=== PATIENT | male | born 1935 | race Caucasian/White ===

== ENCOUNTER → 2016-08-22 | Day surgery (SDC) | payer OTHER ==
[~2016-08-22] VITALS: Ht 172.7 cm; Wt 88.8 kg
[~2016-08-22] MED LIST: *morphine SULFATE 8 MG/ML PERIprocedure ONLY ONE; ALEN1TAB48 PO; ALEN40TA PO; ASPI325T PO; CENTTAB PO; CEPH-459 PO; CHOL100025 CHEW; DO NOT ADM ANY ANTICOAGULANT DRUGS XX PRN; INSULIN HUMAN REGULAR 1,000 UNITS/10 ML VIAL SQ PRN; LACTATED RINGER'S 1000 ML INJ 1,000 ML IV ONE; LACTATED RINGER'S 1000 ML IV SCH; LIPI80TA PO; METO25TA3 PO; METOPROLOL TARTRATE 25 MG TAB PO PRN; MIRA25TA PO; MULTTAB67 PO; ONDANSETRON HCL 4 MG/2 ML VIAL IV PUSH ONE; ONDANSETRON HCL 4 MG/2 ML VIAL IV PUSH PRN; OXYB5TAB10 PO; PERC5TAB12 PO; PHENYLEPH/NS 1000 MCG/10 ML SYR IV ONE; PROPOFOL 200 MG/20 ML AMP IV ONE; PROT40TA PO; SODIUM CHLORID 0.9% 500 ML IV SCH; TICEINJ I-VESICULR; VITATAB56 PO; ceFAZolin 2 GM PREMIX 50 ML IV SCH; ceFAZolin 2 GM PREMIX 50 ML ONE; oxyCODONE/ACETAMINOPHEN 5 MG/325 MG TAB PO PRN
[2016-08-22 08:44] VITALS: BP 155/87; PULSE 82; RESP 20; TEMP 98; O2SAT 98
[2016-08-22 08:57] LABS: AUTOMATED NEUTROPHIL # 6.1 TH/MM3 (1.8-7.7); BASOPHIL # 0.1 TH/MM3 (0-0.2); BASOPHIL % 0.7 % (0.0-2.0); EOSINOPHIL # 0.4 TH/MM3 (0-0.4); EOSINOPHIL % 3.8 % (0.0-4.0); HEMATOCRIT 40.8 % (39.0-51.0); HEMO FLAGS DIFF FINAL; LYMPH % 21.7 % (9.0-44.0); LYMPHOCYTE # 2.2 TH/MM3 (1.0-4.8); MEAN CELL VOLUME 79.7 FL (80.0-100.0); MEAN CORPUSCULAR HEMOGLOBIN 26.4 PG (27.0-34.0); MEAN CORPUSCULAR HGB CONC 33.1 % (32.0-36.0); NEUT % 60.8 % (16.0-70.0); PLATELET COUNT 173 TH/MM3 (150-450); RED BLOOD COUNT 5.13 MIL/MM3 (4.50-5.90); RED CELL DISTRIBUTION WIDTH 15.9 % (11.6-17.2); WHITE BLOOD COUNT 10.1 TH/MM3 (4.0-11.0)
[2016-08-22 14:04] VITALS: BP 156/82; PULSE 75; RESP 20; TEMP 97.9; O2SAT 97
--- NOTE | 2016-08-25 13:21 | MP ---
cc: RIKI GREENE MD DATE OF PROCEDURE August 22, 2016 INDICATIONS FOR PROCEDURE The case of a pleasant 80-year-old gentleman with history of recurrent bladder cancer who recently presented with lower urinary tract symptoms. Cystoscopic evaluation my office demonstrated the presence of a urethral stricture. The patient presents today for cystoscopy and direct visual internal urethrotomy. PREOPERATIVE DIAGNOSIS Urethral stricture. POSTOPERATIVE DIAGNOSIS Urethral stricture as well as devitalized tissue at the bladder dome. ATTENDING SURGEON Dr. Greene ANESTHESIA General. PROCEDURES PERFORMED Cystoscopy, direct visual internal urethrotomy and transurethral resection of devitalized tissue located to the bladder dome measuring approximately 1 cm in diameter. COMPLICATIONS None. ESTIMATED BLOOD LOSS None. SPECIMENS None. OPERATIVE PROCEDURE IN DETAIL The patient was brought to the operating suite and placed supine on the cystoscopy table. He was then placed under general anesthesia. He was then repositioned in the dorsal lithotomy position and prepped and draped in normal sterile fashion. After an appropriate time-out was undertaken, I proceeded with cystoscopic evaluation utilizing the rigid cystoscope with the 20-[place] sheath and 30-degree lens. The patient once again was noted to have a circumferential stricture involving the bulbar urethra. The stricture was tight enough that it precluded passage of the cystoscope. I next exchanged the cystoscope for the direct visual internal urethrotome with the straight blade and I was able to easily open up the stricture by cutting at the 12 o'clock position. I then once again exchanged the internal urethrotome for the cystoscope and repeated cystoscopy. The prostate was not obstructing. Further passage of the cystoscope within the bladder demonstrated a small area of devitalized tissue involving the bladder dome. The tissue itself was at the previous transurethral resection site and it was approximately 1 cm in diameter and appeared to be hanging by a few fine threads. I then went ahead and utilized the resectoscope with a 24-[place] loop and resected this small amount of devitalized tissue which was discarded. The resectoscope was then withdrawn and an 18-[place], 10 cc Benson catheter was placed and connected to gravity drainage. The patient tolerated the procedures without complications and was transferred to the PACU in satisfactory condition. Riki Greene MD BPS/LEILANI /12:19 PM /1:17 PM
== END | disposition home or self-care (01) ==
LOC: HSDC 07:56
PROVIDERS: ATTEND Urology
DX: N35.9 Urethral stricture, unspecified (principal); Z85.51 Personal history of malignant neoplasm of bladder
CPT/HCPCS: 00910; 52276; 85025; J0690; J2270; J2370; J2405; J3010; J7120

== ENCOUNTER → 2017-01-16 | Day surgery (SDC) | payer OTHER ==
[~2017-01-16] VITALS: Ht 172.7 cm; Wt 90.0 kg
[~2017-01-16] MED LIST changes: -*morphine SULFATE 8 MG/ML PERIprocedure ONLY ONE; +ACETAMINOPHEN 1000 MG/100 ML VIAL IV ONE; -ALEN1TAB48 PO; -CENTTAB PO; +CHLORHEXIDINE GLUCONATE 2 % 1 PACK (2 CLOTHS) TOPICAL PRN; +DO NOT ADM ANY ANTICOAGULANT DRUGS PRN; -DO NOT ADM ANY ANTICOAGULANT DRUGS XX PRN; +HYDROmorphone HCL PF 2 MG/ML VIAL ONE; -LACTATED RINGER'S 1000 ML INJ 1,000 ML IV ONE; +LACTATED RINGER'S 1000 ML IV PRN; -LACTATED RINGER'S 1000 ML IV SCH; -MIRA25TA PO; -ONDANSETRON HCL 4 MG/2 ML VIAL IV PUSH PRN; -OXYB5TAB10 PO; -PHENYLEPH/NS 1000 MCG/10 ML SYR IV ONE; +POVIDONE IODINE 5% (ANTISEPSIS KIT) 4 APPLICATIONS EACH NARE PRN; +SODIUM CHLORID 0.9% 500 ML IV PRN; -SODIUM CHLORID 0.9% 500 ML IV SCH; -TICEINJ I-VESICULR; -VITATAB56 PO; -ceFAZolin 2 GM PREMIX 50 ML ONE; +ePHEDrine/NS 25 MG/5 ML SYR IV ONE; -oxyCODONE/ACETAMINOPHEN 5 MG/325 MG TAB PO PRN
[2017-01-16 07:17] VITALS: BP 150/79; PULSE 68; RESP 18; TEMP 97.8; O2SAT 97
[2017-01-16 07:23] LABS: AUTOMATED NEUTROPHIL # 4.8 TH/MM3 (1.8-7.7); BASOPHIL # 0.1 TH/MM3 (0-0.2); BASOPHIL % 0.9 % (0.0-2.0); EOSINOPHIL # 0.3 TH/MM3 (0-0.4); HEMATOCRIT 38.9 % (39.0-51.0); HEMO FLAGS DIFF FINAL; LYMPH % 19.3 % (9.0-44.0); LYMPHOCYTE # 1.5 TH/MM3 (1.0-4.8); MEAN CELL VOLUME 79.2 FL (80.0-100.0); MEAN CORPUSCULAR HEMOGLOBIN 26.6 PG (27.0-34.0); MEAN CORPUSCULAR HGB CONC 33.6 % (32.0-36.0); MONO % 13.2 % (0.0-8.0); NEUT % 62.6 % (16.0-70.0); PLATELET COUNT 152 TH/MM3 (150-450); RED BLOOD COUNT 4.91 MIL/MM3 (4.50-5.90); RED CELL DISTRIBUTION WIDTH 15.5 % (11.6-17.2); WHITE BLOOD COUNT 7.7 TH/MM3 (4.0-11.0)
--- NOTE | 2017-01-16 09:15 | PD.OP ---
Operative Report Date of Surgery: Jan 16, 2017 Preoperative Diagnosis: (1) History of bladder cancer Postoperative Diagnosis: (1) History of bladder cancer Procedure: Cystoscopy with bladder biopsy and fulguration Anesthesia: General Surgeon: Riki Greene Gas Or Water Meter Installer(s): None Operation and Findings: Indication for procedure: Case of a pleasant 81-year-old gentleman with history recurrent bladder cancer as well as carcinoma in situ of the bladder underwent recent follow up cystoscopy that demonstrated a small area involving the posterior wall with devitalized tissue. Presents now for cystoscopy with bladder biopsy and fulguration of this area. Operative procedure in detail: Patient was brought to the operating room suite and placed supine on the OR table. He was then placed and general anesthesia. He was then repositioned in the dorsolithotomy position and prepped and draped in normal sterile fashion. After appropriate timeout was undertaken I proceeded with cystoscopic evaluation utilizing the rigid cystoscope with the 20 [place] sheath and 30 lens. The urethra was patent without stricture formation, the prostatic urethra demonstrated some enlargement of the lateral lobes, further passive cystoscope within the urinary bladder revealed both right and left ureteral orifices to be in correct anatomic position effluxing clear yellow urine. Once again noted was a small area measuring approximately 1 cm of devitalized tissue involving the posterior bladder wall near the dome. I next proceeded utilizing flexible biopsy forceps and took a biopsy of the site. Next the area was fulgurated with the Bugbee electrode. The bladder was drained of all irrigant fluid and a 16 [place]istan[place] 10 cc Benson catheter was placed. The patient tolerated the procedures without complications and was transferred to the PACU in satisfactory condition. Riki Greene MD Jan 16, 2017 09:15
[2017-01-16 10:47] VITALS: BP 151/82; PULSE 67; RESP 18; TEMP 97.5; O2SAT 95
--- NOTE | 2017-01-17 07:42 | EKG ---
Date Performed: 01/16/2017 Time Performed: 07:03:23 PTAGE: 81 years EKG: ELECTRONIC ATRIAL PACEMAKER MARKED LEFT AXIS DEVIATION LEFT BUNDLE BRANCH BLOCK ABNORMAL EC G PREVIOUS TRACING : 01/11/2016 09.57 DOCTOR: Pebbles Bailon Interpretating Date/Time 01/17/2017 07:41:24
== END | disposition home or self-care (01) ==
LOC: HSDC 06:09
PROVIDERS: ATTEND Urology
DX: Z85.51 Personal history of malignant neoplasm of bladder (principal); I44.7 Left bundle-branch block, unspecified; R94.31 Abnormal electrocardiogram [ECG] [EKG]
CPT/HCPCS: 00910; 52224; 85025; 88305; 93005; J0131; J0690; J1170; J2405; J7120

== ENCOUNTER 2017-02-05 13:06 | Inpatient (IN) | payer OTHER, MEDICARE ==
[~2017-02-05] VITALS: Ht 172.7 cm; Wt 90.0 kg
[~2017-02-05 13:06] MED LIST changes: -ACETAMINOPHEN 1000 MG/100 ML VIAL IV ONE; -CEPH-459 PO; -CHLORHEXIDINE GLUCONATE 2 % 1 PACK (2 CLOTHS) TOPICAL PRN; +CIPR-9 PO; -DO NOT ADM ANY ANTICOAGULANT DRUGS PRN; -HYDROmorphone HCL PF 2 MG/ML VIAL ONE; -INSULIN HUMAN REGULAR 1,000 UNITS/10 ML VIAL SQ PRN; -LACTATED RINGER'S 1000 ML IV PRN; -METOPROLOL TARTRATE 25 MG TAB PO PRN; +MIRA25TA PO; -ONDANSETRON HCL 4 MG/2 ML VIAL IV PUSH ONE; -PERC5TAB12 PO; +PHEN0.4T PO; -POVIDONE IODINE 5% (ANTISEPSIS KIT) 4 APPLICATIONS EACH NARE PRN; -PROPOFOL 200 MG/20 ML AMP IV ONE; -SODIUM CHLORID 0.9% 500 ML IV PRN; -ceFAZolin 2 GM PREMIX 50 ML IV SCH; -ePHEDrine/NS 25 MG/5 ML SYR IV ONE
[2017-02-05 13:07] VITALS: BP 142/66; PULSE 84; RESP 20; TEMP 97.1; O2SAT 98
--- NOTE | 2017-02-05 13:34 | PD ---
HPI Chief Complaint: Complaint Time Seen by Provider: 13:29 Travel History International Travel<30 days: No Contact w/Intl Traveler<30days: No Traveled to known affect area: No History of Present Illness HPI 81-year-old male presents to the emergency department for evaluation of left testicle pain and swelling that started upon awakening this morning. The patient has a history of bladder cancer, sees Dr. Greene. He is status post transurethral resection of a recurrent lesion on January 16, 2017. The patient saw Dr. Greene 2 days ago and was prescribed Mirabegron , Pyridium, ciprofloxacin. He has taken one dose of the Mirabegron, but has not yet started the ciprofloxacin. Patient also reports history of hypertension, hyperlipidemia, heart valve disease. Patient denies any fevers or chills. No chest pain or shortness of breath. He denies any abdominal pain. No nausea, vomiting, diarrhea. Patient states the pain in his testicles okay as long as he is not walking. Patient did have his lara removed [address] Greene. He denies any symptoms of retention. PFSH Past Medical History Arthritis: Yes Asthma: No Blood Disorders: No Heart Rhythm Problems: No Cancer: Yes (BLADDER ) Cardiovascular Problems: Yes (TRIPLE BYPASS; PACE MAKER PLACE ) High Cholesterol: Yes (CHOLESTEROL) Chemotherapy: Yes Chest Pain: Yes Congestive Heart Failure: Yes COPD: No Diabetes: No Endocrine: No Gastrointestinal Disorders: No Genitourinary: No (CANCER OF THE BLADDER) Hepatitis: No Hiatal Hernia: No Hypertension: Yes Immune Disorder: No Kidney Stones: No Musculoskeletal: No Neurologic: No Psychiatric: No Reproductive: No Respiratory: Yes (PT STS FLUID AROUND RT LUNG WITH QUESTIONABLE CANCER; [facility]) Radiation Therapy: Yes Renal Failure: No Sleep Apnea: No Thyroid Disease: No Past Surgical History Abdominal Surgery: No Body Medical Devices: PHILL & PINS IN RIGHT ARM, LT SHOULDER PIN, PACEMAKER Cardiac Surgery: Yes (TRIPLE BYPASS) Ear Surgery: No Endocrine Surgery: No Eye Surgery: No Genitourinary Surgery: Yes (BLADDER SURGERY X 5) Joint Replacement: No Oral Surgery: No Pacemaker: Yes (MEDTRONIC) Thoracic Surgery: Yes (pacemaker-Medtronic) Other Surgery: Yes Social History Alcohol Use: No Tobacco Use: No Substance Use: No Allergies-Medications (Allergen,Severity, Reaction): Coded Allergies: No Known Allergies (Unverified , 02/03/17) Reported Meds & Prescriptions Reported Meds & Active Scripts Active Myrbetriq (Mirabegron) 25 Mg Tab 25 Mg PO DAILY Pyridium (Phenazopyridine HCl) 100 Mg Tab 100 Mg PO Q8H PRN Cipro (Ciprofloxacin HCl) 500 Mg Tab 500 Mg PO BID Reported B-12 Tr (Cyanocobalamin) 1,000 Mcg Tab 1,000 Mcg PO DAILY Alendronate (Alendronate Sodium) 70 Mg Tab 70 Mg PO Q7D Multiple Vitamin 1 Tab 1 Tab PO DAILY Vitamin D3 (Cholecalciferol) 1,000 Unit Chew 1,000 Units CHEW DAILY Metoprolol Tartrate 25 Mg Tab 25 Mg PO BID Protonix (Pantoprazole Sodium) 40 Mg Tab 40 Mg PO BID Lipitor (Atorvastatin Calcium) 80 Mg Tab 80 Mg PO HS Aspirin 325 Mg Tab 325 Mg PO DAILY Review of Systems Except as stated in HPI: all other systems reviewed are Neg Physical Exam Narrative GENERAL: Well-nourished, well-developed elderly male patient, afebrile. SKIN: Focused skin assessment warm/dry. HEAD: Normocephalic. Atraumatic. EYES: No scleral icterus. No injection or drainage. NECK: Supple, trachea midline. No JVD or lymphadenopathy. CARDIOVASCULAR: Regular rate and rhythm without murmurs, gallops, or rubs. RESPIRATORY: Breath sounds equal bilaterally. No accessory muscle use. Lungs sounds are clear to auscultation. GASTROINTESTINAL: Abdomen soft, non-tender, nondistended. MUSCULOSKELETAL: No cyanosis, or edema. BACK: Nontender without obvious deformity. No CVA tenderness. GENITOURINARY: Circumcised. Patient has pain with palpation of the left testicle with swelling noted. No tenderness over the right testicle. No lesions or erythema. No urethral discharge. exam was done with RN at bedside. Data Data Last Documented VS Vital Signs Date Time Temp Pulse Resp B/P Pulse Ox O2 Delivery O2 Flow Rate FiO2 02/05/17 13:07 97.1 84 20 142/66 98 Room Air Orders Complete Blood Count With Diff (02/05/17 13:28) Basic Metabolic Panel (Bmp) (02/05/17 13:28) Iv Access Insert/Monitor (02/05/17 13:28) Urinalysis - C+S If Indicated (02/05/17 13:28) Us Testicles W Doppler (02/05/17 ) Blood Culture (02/05/17 15:32) Lactic Acid Sepsis Protocol (02/05/17 15:32) Sodium Chlor 0.9% 1000 Ml Inj (Ns 1000 M (02/05/17 15:45) Urine Culture (02/05/17 14:44) Levofloxacin 750 Mg Premix Inj (Levaquin (02/05/17 16:00) Admit Order (Ed Use Only) (02/05/17 16:11) Admit To Inpatient (02/05/17 ) Inpatient Certification (02/05/17 ) Activity Oob Ad Christine (02/05/17 16:11) Vital Signs (Adult) PINEDA.Q4H (02/05/17 16:11) Sodium Chlor 0.9% 1000 Ml Inj (Ns 1000 M (02/05/17 17:00) Labs Laboratory Tests Test 02/05/17 02/05/17 02/05/17 14:35 14:44 15:53 White Blood Count 22.0 TH/MM3 Red Blood Count 4.86 MIL/MM3 Hemoglobin 13.0 GM/DL Hematocrit 38.5 % Mean Corpuscular Volume 79.3 FL Mean Corpuscular Hemoglobin 26.7 PG Mean Corpuscular Hemoglobin 33.7 % Concent Red Cell Distribution Width 15.6 % Platelet Count 173 TH/MM3 Mean Platelet Volume 8.8 FL Neutrophils (%) (Auto) 85.9 % Lymphocytes (%) (Auto) 5.1 % Monocytes (%) (Auto) 7.8 % Eosinophils (%) (Auto) 0.8 % Basophils (%) (Auto) 0.4 % Neutrophils # (Auto) 18.9 TH/MM3 Lymphocytes # (Auto) 1.1 TH/MM3 Monocytes # (Auto) 1.7 TH/MM3 Eosinophils # (Auto) 0.2 TH/MM3 Basophils # (Auto) 0.1 TH/MM3 CBC Comment DIFF FINAL Differential Comment Sodium Level 140 MEQ/L Potassium Level 3.5 MEQ/L Chloride Level 103 MEQ/L Carbon Dioxide Level 27.1 MEQ/L Anion Gap 10 MEQ/L Blood Urea Nitrogen 25 MG/DL Creatinine 1.41 MG/DL Estimat Glomerular Filtration 48 ML/MIN Rate Random Glucose 123 MG/DL Calcium Level 8.9 MG/DL Urine Color YELLOW Urine Turbidity HAZY Urine pH 5.5 Urine Specific [place] 1.030 Urine Protein 30 mg/dL Urine Glucose (UA) NEG mg/dL Urine Ketones NEG mg/dL Urine Occult Blood MOD Urine Nitrite NEG Urine Bilirubin NEG Urine Urobilinogen 2.0 MG/DL Urine Leukocyte Esterase LARGE Urine RBC 5 /hpf Urine WBC /hpf Urine Squamous Epithelial 1 /hpf Cells Urine Transitional Epithelial 1 /hpf Cells Urine Amorphous Sediment RARE Urine Bacteria OCC /hpf Urine Hyaline Casts 4 /lpf Urine Mucus FEW /lpf Microscopic Urinalysis Comment CULTURE INDICATED Lactic Acid Level 1.1 mmol/L [facility] Medical Decision Making Medical Screen Exam Complete: Yes Emergency Medical Condition: Yes Medical Record Reviewed: Yes Interpretation(s) Last Impressions Scrotum Ultrasound 02/05/17 0000 Signed Impressions: Service Date/Time: Monday, February 05, 2017 13:33 - CONCLUSION: Findings are mostly consistent with epididymoorchitis, however clinical followup is recommended with possible repeat ultrasound in 6-8 weeks after appropriate clinical therapy. Jono Purdy MD Differential Diagnosis UTI vs. epididymitis vs. testicular torsion Narrative Course 81 year old male presents to the emergency department for evaluation of left testicular pain/swelling that started this morning. Patient has history of bladder cancer. He recently had lara removed [address] Greene. CBC, BMP are ordered and pending. UA is ordered and pending. Us of the testicles are ordered and pending. CBC shows leukocytosis at 22.0 which is significantly increased since previous white count of 7.1. BMP shows BUN 25, crit 31.41. UA shows innumerable WBC. US testicles shows findings are mostly consistent with epididymoorchitis. Patient is started on Levaquin 750 mg IV for epididymitis and UTI. Due to significant elevation in white count, patient will be admitted for [address] Saini accepted admission. Dr. Angela, hospitalist, wanted urology to be called before admission completed. I spoke to Dr. Kaminski, urologist front of house manager. I relayed all findings to him. He would like the patient to be sent home on oral antibiotics, ciprofloxacin. He states the patient should take Motrin [id number] for pain and follow-up with Dr. Greene this week. I discussed this with the patient and his verbalized understanding. The patient currently has a 5 day prescription for Cipro 500 mg twice a day. I will give him another prescription for another 5 days to take after current prescription is finished. The patient and his verbalized agreement and understanding. The patient was discharged in stable condition with instructions, including return instructions and follow up instructions. Diagnosis Primary Impression: Epididymo-orchitis, acute Additional Impression: Urinary tract infection Qualified Code: T83.511A - Urinary tract infection associated with indwelling urethral catheter, initial encounter Referrals: Riki Greene MD 2 days Patient Instructions: Catheter-associated Urinary Tract Infection (ED), Epididymo-Orchitis (ED), General Instructions Additional Instructions: Take your current prescription for ciprofloxacin. Once this prescription is finished, then start the prescription that you are being given today. This will make for a total of 14 days of ciprofloxacin 500 mg twice daily. Finish all antibiotics. Follow up with Dr. Greene this week. Over the counter Tylenol or Ibuprofen for pain. Return to the emergency department for any acute, worsening of symptoms. Med/Other Pt SpecificInfo: Prescription(s) given Scripts Ciprofloxacin (Cipro)500 Mg [id number] Mg PO BID 9 Days Ref 0 Prov:Dafne Lundberg 02/05/17 Ciprofloxacin 500 Mg [id number] Mg PO BID 5 Days Ref 0 Prov:Dafne Lundberg 02/05/17 Disposition: 01 DISCHARGE HOME Condition: Stable Dafne Lundberg Feb 05, 2017 13:34
[2017-02-05 14:57] LABS: AUTOMATED NEUTROPHIL # 18.9 TH/MM3 (1.8-7.7); BASOPHIL # 0.1 TH/MM3 (0-0.2); BASOPHIL % 0.4 % (0.0-2.0); EOSINOPHIL # 0.2 TH/MM3 (0-0.4); EOSINOPHIL % 0.8 % (0.0-4.0); HEMATOCRIT 38.5 % (39.0-51.0); HEMO FLAGS DIFF FINAL; LYMPH % 5.1 % (9.0-44.0); LYMPHOCYTE # 1.1 TH/MM3 (1.0-4.8); MEAN CELL VOLUME 79.3 FL (80.0-100.0); MEAN CORPUSCULAR HEMOGLOBIN 26.7 PG (27.0-34.0); MEAN CORPUSCULAR HGB CONC 33.7 % (32.0-36.0); MONO % 7.8 % (0.0-8.0); NEUT % 85.9 % (16.0-70.0); PLATELET COUNT 173 TH/MM3 (150-450); RED BLOOD COUNT 4.86 MIL/MM3 (4.50-5.90); RED CELL DISTRIBUTION WIDTH 15.6 % (11.6-17.2)
--- NOTE | 2017-02-05 15:12 | RADRPT ---
EXAM DATE/TIME: 02/05/2017 13:33 [facility] COMPARISON: No previous studies available for comparison. INDICATIONS : Testicular pain. MEDICAL HISTORY : Congestive heart failure. Hypercholesterolemia. Cataracts. Hearing loss. Glasses. Bialteral hearing a ids. Upper and lower dentures. Hyperlipidemia. Chest pain. Gastroesophegeal refulx disorder. Bladder cancer. SURGICAL HISTORY : Pacemaker. Triple bypass surgery. Right shoulder replacement. Left shoulder pin. ENCOUNTER: Initial ACUITY: 1 day PAIN SCORE: 9/10 LOCATION: Bilateral testicles. MEASUREMENTS: RIGHT TESTICLE: 4.2 x 2.7 x 2.2cm SIZE (L x W x H) NATURE LOCATION LEFT TESTICLE: 4.5 x 3.6 x 2.7 cm FINDINGS: RIGHT TESTICLE: Homogeneous echotexture without intra or extratesticular mass. Blood flow is symmetric and within no rmal limits. There is a tiny hydrocele. Small epididymal head cyst is present measuring 7 mm in size. LEFT TESTICLE: Homogeneous echotexture without intra or extratesticular mass. Blood flow is increased to left testi tammy and epididymis with thickening of the adjacent scrotum. There is a tiny hydrocele. Epididymis is within normal limits. CONCLUSION: Findings are mostly consistent with epididymoorchitis, however clinical followup is recommended with possible repeat ultrasound in 6-8 weeks after appropriate clinical therapy. Jono Purdy MD on February 05, 2017 at 15:08 Board Certified Radiologist. This report was verified electronically.
[2017-02-05 15:28] LABS: BICARBONATE 27.1 MEQ/L (21.0-32.0); POTASSIUM 3.5 MEQ/L (3.5-5.1)
[2017-02-05] MEDS ORDERED: SODIUM CHLOR 0.9% 1000 ML INJ 1,000 ML IV ONE (15:45)
[2017-02-05] MEDS ORDERED: ALEN1TAB48 PO (15:48)
[2017-02-05] MEDS ORDERED: [UNRECOGNIZED DRUG - CODE] PO (15:49)
[2017-02-05 15:52] LABS: BACTERIA, URINE OCC /hpf; BLOOD, URINE MOD (NEG); COMMENT (UR) CULTURE INDICATED; CULTURE IF INDICATED CULTURE INDICATED; GLUCOSE,URINE NEG (NEG); HYALINE CAST, URINE 4 /lpf (RARE); KETONE, URINE NEG (NEG); MUCUS URINE FEW /lpf (OCC); NITRITE,URINE NEG (NEG); PH, URINE 5.5 (5.0-8.5); SQUAMOUS EPITHELIAL CELL URINE 1 /hpf (0-5); TRANSITIONAL EPI CELLS, URINE 1 /hpf; URINE COLOR YELLOW (YELLW/STRAW)
[2017-02-05] MEDS ORDERED: LEVOFLOXACIN 750 MG PREMIX INJ 150 ML IV ONE (16:00)
[2017-02-05] MEDS ORDERED: SODIUM CHLOR 0.9% 1000 ML INJ 1,000 ML IV SCH (17:00)
[2017-02-05] MEDS ORDERED: CIPR500T2 PO (17:36)
[2017-02-05] MEDS ORDERED: CIPR-9 PO (17:38)
[2017-02-07] MEDS ORDERED: TAMS5CAP PO (15:31)
[2017-02-15] MEDS ORDERED: CIPR500T2 PO (13:15)
== END 2017-02-05 17:37 | disposition home or self-care (01) | DRG 728 ==
LOC: NEPC 13:06 → NEDA 16:13
PROVIDERS: ADMIT Internal Medicine; ATTEND Internal Medicine
DX: N45.3 Epididymo-orchitis (principal); Z95.1 Presence of aortocoronary bypass graft; I10 Essential (primary) hypertension; Z85.51 Personal history of malignant neoplasm of bladder; E78.5 Hyperlipidemia, unspecified; Z95.0 Presence of cardiac pacemaker; Z79.82 Long term (current) use of aspirin
CPT/HCPCS: 76870; 80048; 81001; 83605; 85025; 86403; 87040; 87077; 87086; 87186; 87205; 93975; J1956; J7030

== ENCOUNTER 2017-11-21 05:37 | Day surgery (SDC) | payer OTHER ==
[~2017-11-21] VITALS: Ht 172.7 cm; Wt 86.1 kg
[~2017-11-21 05:37] MED LIST changes: +ALEN1TAB48 PO; -ALEN40TA PO; +ASPI-183 PO; -ASPI325T PO; -CIPR-9 PO; -MIRA25TA PO; -PHEN0.4T PO; +TAMS5CAP PO
[2017-11-21] MEDS ORDERED: IOHEXOL 350 MG/ML 50 ML BTL (for EPS) OTHER ONE (05:38)
[2017-11-21] MEDS ORDERED: ceFAZolin 2 GM PREMIX 50 ML IV SCH (06:00)
[2017-11-21] MEDS ORDERED: POVIDONE IODINE 5% (ANTISEPSIS KIT) 4 APPLICATIONS EACH NARE PRN (06:00)
[2017-11-21] MEDS ORDERED: SODIUM CHLORID 0.9% 500 ML IV PRN (06:00)
[2017-11-21] MEDS ORDERED: POVIDONE IODINE 5% (ANTISEPSIS KIT) 4 APPLICATIONS EACH NARE SCH (06:00)
[2017-11-21] MEDS ORDERED: Hold AM Insulin & AM Hypoglycemic medications in diabetic patients PRN (06:00)
[2017-11-21] MEDS ORDERED: CHLORHEXIDINE GLUCONATE 2 % 1 PACK (2 CLOTHS) TOPICAL SCH (06:00)
[2017-11-21] MEDS ORDERED: LACTATED RINGER'S 1000 ML IV PRN (06:00)
[2017-11-21] MEDS ORDERED: METOPROLOL TARTRATE 25 MG TAB PO PRN (06:00)
[2017-11-21] MEDS ORDERED: MUPIROCIN 2% OINT 1 APPLIC/GM SYR NASAL SCH (06:00)
[2017-11-21] MEDS ORDERED: VANCOMYCIN 1 GM/200 ML INJ 200 ML IV SCH (06:00)
[2017-11-21] MEDS ORDERED: NS 1000 ML IV SCH (06:00)
[2017-11-21] MEDS ORDERED: CHLORHEXIDINE GLUCONATE 2 % 1 PACK (2 CLOTHS) TOPICAL PRN (06:00)
[2017-11-21] MEDS ORDERED: SACC1CAP3 PO (06:43)
[2017-11-21] MEDS ORDERED: LOSA50TA PO (06:43)
[2017-11-21 06:44] VITALS: BP 164/74; PULSE 51; RESP 18; TEMP 97.9; O2SAT 94
[2017-11-21 06:54] LABS: AUTOMATED NEUTROPHIL # 4.7 TH/MM3 (1.8-7.7); BASOPHIL % 0.2 % (0.0-2.0); EOSINOPHIL # 0.2 TH/MM3 (0-0.4); EOSINOPHIL % 3.2 % (0.0-4.0); HEMATOCRIT 38.1 % (39.0-51.0); HEMOGLOBIN 12.7 GM/DL (13.0-17.0); LYMPH % 19.7 % (9.0-44.0); LYMPHOCYTE # 1.4 TH/MM3 (1.0-4.8); MEAN CELL VOLUME 81.2 FL (80.0-100.0); MEAN CORPUSCULAR HEMOGLOBIN 27.2 PG (27.0-34.0); MEAN CORPUSCULAR HGB CONC 33.5 % (32.0-36.0); MONO % 11.7 % (0.0-8.0); MONOCYTE # 0.9 TH/MM3 (0-0.9); NEUT % 65.2 % (16.0-70.0); PLATELET COUNT 161 TH/MM3 (150-450); RED BLOOD COUNT 4.68 MIL/MM3 (4.50-5.90); RED CELL DISTRIBUTION WIDTH 15.7 % (11.6-17.2); WHITE BLOOD COUNT 7.3 TH/MM3 (4.0-11.0)
[2017-11-21 07:04] LABS: BICARBONATE 23.7 MEQ/L (21.0-32.0); CALCIUM 8.7 MG/DL (8.5-10.1); CREATININE 1.29 MG/DL (0.60-1.30)
[2017-11-21 07:14] LABS: INTERNATIONAL NORMALIZED RATIO 1.1 RATIO; PROTHROMBIN TIME - PATIENT 11.4 SEC (9.8-11.6)
[2017-11-21] MEDS ORDERED: LIDOCAINE HCL 2% 20 ML VIAL ONE (07:37)
[2017-11-21] MEDS ORDERED: VANCOMYCIN 500 MG VIAL ONE (07:37)
[2017-11-21] MEDS ORDERED: MIDAZOLAM HCL 2 MG/2 ML VIAL ONE (08:33)
[2017-11-21] MEDS ORDERED: ACETAMINOPHEN/CODEINE 300 MG/30 MG TAB PO PRN ×2 (09:00)
[2017-11-21] MEDS ORDERED: BACITRACIN OINT 0.9 GM PKT TOP PRN (09:00)
[2017-11-21] MEDS ORDERED: SODIUM CHLORIDE 0.9% FLUSH 10 ML FLUSH IV FLUSH PRN (09:00)
[2017-11-21] MEDS ORDERED: SODIUM CHLORIDE 0.9% FLUSH 10 ML FLUSH IV FLUSH SCH (09:00)
--- NOTE | 2017-11-21 09:06 | CATHPROC ---
[employer] HIS Report Study Information Study Number Admission Scheduled Start Study Start [id number] Nov 21 2017 5:37AM 11/21/2017 Nov 21 2017 7:25AM [place] Service Cardiac Pacer/ICD Admit Source Facility Department Other [facility] - Music Manager Physician and Clinical Staff Initial MD Berkowitz, Jarrett National Secretary Genevieve Wilson,DANIEL Other Anesthesia, HEAD PACKAGER Recorder Galilea Thomas,WARDSPERSON TECH2 Scrub Makayla Juarez,RT(R) Procedures Performed Procedure Location (Site) Vessel Name Lead Insertion Venogram Subclav. Vein (Lft Subclavian Vein Equipment Time Tool Carrier Description Size Mfg Part Number Used/Scraped INTRODUCER SET, 08:00 [employer] FR 5 [id number] *[id number] Used MICROPUNCTURE STIFF TP-1103 07:42 MEDLINE INDUSTRIES SUTURE, STRIP PLUS 1/2" * Used *[id number] 07:42 MEDLINE PACER ADHESIVE, MASTISOL 2/3CC 2/3CC 0523-48 Used 07:42 MEDLINE PACER WOMACK, LIMB * 2530 *[id number] Used [id number] 07:42 MEDLINE PACER PACK, PACER CUSTOM * Used *[id number] 07:42 MEDLINE PACER PEN, SKIN DUAL W/ RULER * Used *[id number] 08:01 [employer] PACER SAFE SHEATH, FR7, 13CM FR 7 [id number] Used 07:39 Needle Sponge Count 2 22 Used 07:39 Needle Sponge Count 3 3 Used 07:39 Needle Sponge Count 30 1 Used 08:35 Needle Sponge Count 5 5 Used 08:00 NYCOMED OMNIPAQUE, 350 MG, 50ML 50ML [id number] Used [id number] SUTURE, 2-0 VICRYL [SH] ([id number]) SUTURE, 3-0 VICRYL [SH] ([id number]) SUTURE, 4-0 MONOCRYL [PS2] (Y496G) [id number] 07:42 [employer],WARM AIR CCL * Used *[id number] [facility] PAD, ELECTROSURGICAL 07:42 * [id number] *[id number] Used SURGICAL GROUNDING ORANGE LEAD, CAPSURE FIX NOVUS, 4076-45CM 08:02 VITATRON MEDTRONIC 45CM Used 45CM *[id number] 07:42 [employer] LIZANDRO. / * Used *05925 Equipment Model, Serial, Lot Number and Expiration Data Description Model Number Serial Number Lot Number Expiration Date RUDY LEYVA, 45CM 4076-45cm [id number] 05-31-2019 History: Current Medications Medication Dosage/Unit Route Frequency Last Date/Time Taken ASA LOPRESSOR LIPITOR History: Allergies Allergy Reaction No Known Allergies History: Risk Factors Family History of Hypertension Dyslipidemia Previous [place] Previous Heart Failure Premature CAD Yes Yes Yes Yes Yes Prior Valve Prior PCI Prior CABG Surgery Yes No Yes Cerebrovascular Peripheral Artery Chronic Lung On Dialysis Diabetes Disease Disease Disease No No No No No Labs Hgb (g/dl) Hct (%) WBC (l/cumm) 11.60-17.00 35.00-51.00 4.00-11.00 12.7 38.1 7.3 Glucose (mg/dl) BUN (mg/dl) Creatinine (mg/dl) BUN:Creatinine (1:x) 74.00-106.00 7.00-18.00 0.50-1.30 10.00-20.00 101 26 1.3 20 Na (meq/l) K (meq/l) 136.00-145.00 3.50-5.10 140 4 INR (PTT:PT) 0.90-1.10 1.1 Medication Medication Total Dose (Bolus/Oral) Medication Total Dosage/Unit 2% XYLOCAINE 50 mL Medications (Bolus/Oral) Medication Time Given Dosage/Unit Administered By Reason 2% XYLOCAINE 11/21/2017 7:47:41 AM 50 mL Jarrett Berkowitz 50 mL 2% XYLOCAINE given in lab by Jarrett Berkowitz via Subcutaneous to the left upper chest. Medication (Drip) Medication Time Given Dosage/Unit Concentration/Unit Diluent (ml) Solution ANCEF 11/21/2017 7:14:43 AM 2 g 2 g ANCEF given in lab by Anesthesia, HEAD PACKAGER via Peripheral IV. Ordered by Jarrett Berkowitz. Reason: As pe r physicians verbal order. VANCOMYCIN DRIP 11/21/2017 7:14:20 AM 1 g 1 g VANCOMYCIN DRIP given in lab by Anesthesia, HEAD PACKAGER via Peripheral IV. Ordered by Jarrett Berkowitz. [place] son: As per physicians verbal order. Initial Case Assessment Cardiovascular HR Rhythm NIBP Chest Pain 59 paced 134/62 0 Edema Present Skin color Skin None Normal Warm Dry Circulatory - Right Pulses Dorsalis Pedis 1 Scale (0,1,2,3,4,d) Circulatory - Left Pulses Dorsalis Pedis 1 Scale (0,1,2,3,4,d) Circulatory - Lower Extremities Color Lower Right Color Lower Left Normal Normal Neurological State Oriented to time-place- Alert Moves all extremities person Respiration - General Respiration Rate SpO2 (%) (B/min) 18 95 Final Case Assessment Cardiovascular HR Rhythm NIBP Chest Pain 74 sr/paced 137/65 0 Neurological State Drowsy Respiration - General SpO2 (%) 97 Chronological Log Time Study Chronological Log 7:10:31 Patient arrived via Bed. 7:10:32 Patient Name, D.O.B, / Armband Verified By R.N. 7:10:33 Consent signed by the physician and the patient and verified by the Music Manager staff. 7:10:34 Pre-op and post- op instructions given; patient acknowledges understanding of instructions. 7:10:35 Patient has been NPO for Less than 6Hrs. 7:10:36 Verbal Stimulation=2 Physical Stimulation=2 Airway=2 Respiration=2 TOTAL=8. (0=absent, 1=peng ited, 2=present) 7:10:36 Anesthesia at bedside. Assumes care of patient. 7:11:28 Skin Breakdown- none per pt 7:11:34 Patient Warmer Placed on the Table. 7:11:46 Junito Prominences Protected 7:11:53 Bovie ground pad applied to: right thigh 7:12:38 Disposable Defibrillator Pads Placed On Patient. 7:12:40 2% CHLORHEXIDINE GLUCONATE WASH AND NASAL SWIPE DONE PRIOR TO PROCEDURE. 7:12:43 History and physical on the chart or being dictated. 7:13:16 A # 20 IV was noted in the Antecubital (left). Grade = 0 0.9% NaCl @ KVO 7:13:52 A # 20 IV was noted in the Forearm (right). Grade = 0 0.9% NaCl @ KVO 1 g VANCOMYCIN DRIP given in lab by Anesthesia, HEAD PACKAGER via Peripheral IV. Ordered by Jarrett Berkowitz . Reason: As per 7:14:20 physicians verbal order. 2 g ANCEF given in lab by Anesthesia, HEAD PACKAGER via Peripheral IV. Ordered by Jarrett Berkowitz. Reason: As per physicians 7:14:43 verbal order. Assessment: Initial Case, HR=59 BPM, Rhythm=paced, PULL=279/62 mmhg, Chest Pain=0, Edema=None, Color=Normal, Skin = Warm, Dry Right Pulses: Mike Ped=1 Left Pulses: Mike Ped=1 7:16:17 Lower Right Extremities: Color=Normal Lower Left Extremities: Color=Normal Neurological: State=Alert, Ox3, FITZPATRICK Respiration: Resp=18 B/min, SpO2=95 % 7:18:28 Table restraints applied according to hospital policy 7:30:48 Left Upper Chest Prepped Times Two. First Sponge And Instrument Count Done by Makayla Juarez, RT(R). 7:37:33 Hypo's: 3, Sponges: 30, Bovie/scratch: 2 Sutures: 5, Blades: 3, Instruments: 26, Syveck Patches: ~SYVECK PATCH~ verified by RW 7:40:09 A sterile drape was applied after a 3min waiting period. 7:41:11 MD arrived. 7:41:27 Reference ECG taken Time Out. Correct patient, procedure, procedure equipment, site and side verified with physician present. Time 7:45:30 concurred by MD, individual staff and HEAD PACKAGER. Time Out #2 - Consents verified, patient in correct position, all results are labled and display ed, safety precautions 7:46:00 taken, antibiotics administered. Time out concurred by MD, individual staff and HEAD PACKAGER in procedur e 7:47:00 Case Start 7:47:41 50 mL 2% XYLOCAINE given in lab by Jarrett Berkowitz via Subcutaneous to the left upper chest. 7:50:59 Surgical Incision Made. 7:51:03 A pocket was opened at the Lt. upper chest. 7:52:28 HR=75 bpm, YIAN=057/58 mmhg, SpO2=98 % 7:53:07 The existing device was explanted and the existing RA lead was disconnected. 7:57:16 The Subclav. Vein (Lft was manually injected with 20 cc's of contrast. OMNIPAQUE, 350 MG, 50 ML 50ML used. 7:59:39 Vascular access was obtained in the Subclav. Vein (Lft. A INTRODUCER SET, MICROPUNCTURE STIFF FR 5 was advanced into the Subclav. Vein (Lft using the Pe rcutaneous 7:59:48 technique. A SAFE SHEATH, FR7, 13CM FR 7 was exchanged in the Subclav. Vein (Lft. This was necessary in ord er to accomodate 8:00:24 a larger catheter. 8:00:43 Two hypo's added to the count. 8:01:26 A LEAD, CAPSURE FIX NOVUS, 45CM 45CM was inserted and positioned in the RA. 8:03:33 Lead placement verified under fluoroscopy 8:03:39 The Atrial lead impedance and threshold is being tested. 8:06:13 The existing RV lead was disconnected. 8:09:28 Repositioning the atrial lead. 8:11:17 The Atrial lead impedance and threshold is being retested. 8:17:43 The Atrial lead was sutured to the fascia. 8:21:55 The existing RA lead was capped. 8:27:19 The new RA lead and the existing RV lead were connected to the existing device. 8:29:54 Pocket flushed with antibiotic solution 8:30:34 Closing the pocket. 8:32:01 HR=69 bpm, UVOK=108/60 mmhg, SpO2=99 % Second Sponge And Instrument Count Done by Makayla Juarez, RT(R). 8:33:33 Hypo's: 5, Sponges: 30, Bovie/scratch: 2 Sutures: ~SUTURE~, Blades: 3, Instruments: ~INSTRU~, Syveck Patches: 0 8:51:18 The pocket was closed. 8:51:20 Case End The Final Sponge And Instrument Count Done by Makayla Juarez, RT(R). 8:52:50 Hypo's: 5, Sponges: 30, Bovie/scratch: 2 Sutures: 5, Blades: 3, Instruments: 26, Syveck Patches: 0 8:53:27 Steri-strips and a sterile dressing applied to site. 8:54:22 Implant Procedure was performed. 8:54:32 A Lead Revision . (Dual) Existing lead capped and a new atrial lead was inserted and connect ed. 9:02:14 A sling was placed on the affected arm. Assessment: Final Case, HR=74 BPM, Rhythm=sr/paced, CLFL=981/65 mmhg, Chest Pain=0 9:02:28 Neurological: State=Drowsy Respiration: SpO2=97 % 9:02:33 HR=74 bpm, DRZM=079/65 mmhg, SpO2=97 % 9:04:52 No case complications noted. 9:04:53 Cine recording checked. 9:04:57 Bedside Report will be given. 9:05:00 Implantable Device card placed in patient's chart. 9:05:04 Defibrillator and ground pads removed. Skin intact. 9:08:27 Patient moved to bed. 9:10:23 Patient transported to DOCU. End Study - Contrast Media Used In Study Contrast Total Opened (mL) Total Used (mL) Total Wasted (mL) Omnipaque 20 20 0 End Study - Maximum Contrast Load Max Contrast Load (mL) 331.1 End Study - Radiation Exposure Fluoro Time (minutes) 3.8 End Study - Sheaths Sheaths Pulled By Sheath Hold Time (min) Jarrett Berkowitz End Study - Patient Disposition Complications Transferred To Interventional Outcome No Outpatient Bed successful
--- NOTE | 2017-11-21 09:15 | MA ---
cc: Jarrett Berkowitz MD DATE: 11/21/2017 PROCEDURE: Opening of the pacemaker pocket, capping of the old atrial lead, insertion of new atrial lead, closure of the pocket. BRIEF HISTORY: This is an 81-year-old man with a history of a Medtronic pacemaker inserted at [facility], who has developed atrial lead malfunction. The patient was followed by one of my colleagues in the practice and by Dr. Madisyn Eli. Because of the nonfunctioning atrial lead, he was scheduled to have a new atrial lead inserted. DESCRIPTION OF PROCEDURE: The patient received preoperative antibiotics with Ancef and vancomycin. Sedation was provided by Anesthesia. Using 1% lidocaine for local anesthesia, an incision was made directly over the previous incision and scar in the left infraclavicular region. Using blunt and sharp dissection, the generator was freed from the pocket and the atrial lead disconnected. Under fluoroscopy the subclavian vein was then punctured being careful not to harm the existing leads and this was done with a micropuncture set and then changed up to a 7 [place] sheath. The new atrial lead was inserted. The first 2 spots that were sampled did not provide adequate thresholds but the third spot, which is near the left atrial appendage, provided good sensing and pacing thresholds. Adequate slack was left in the lead and the lead was tested with 10 volts. There was no diaphragmatic pacing. The lead was then secured to the underlying fascia using three 2-0 silk sutures. The old atrial lead was capped. The atrial and ventricular lead were connected to the generator. The generator was then positioned in the pocket with the leads tucked behind it. The wound was irrigated with antibiotic solution and then closed in layers using interrupted 2-0 Vicryl sutures for the deep fascial layers, interrupted 3-0 Vicryl sutures for the subcutaneous layers, followed by running 4-0 Monocryl stitch. There were no complications. The patient tolerated the procedure well. The new atrial lead is a Medtronic model 4076, length 45 cm, serial number [id number] with a P-wave of 2.9 millivolts, a threshold of 1.0 volts and impedance of 962 ohms. The atrial lead that was capped was a Medtronic 5076, length 45 cm, serial number [id number]. The old ventricular lead is a Medtronic 5076, length 52 cm, serial number [id number]. The old pacemaker is a Medtronic Adapta model ADDR01, serial number is [id number]. The pacemaker is programmed AAIR at a rate of 60-130. A STAT chest x-ray is pending. MD AARON Young/MAGGI , 08:56 AM , 09:14 AM
[2017-11-21] MEDS ORDERED: DO NOT ADM ANY ANTICOAGULANT DRUGS PRN (09:30)
--- NOTE | 2017-11-21 10:54 | RADRPT ---
EXAM DATE/TIME: 11/21/2017 10:23 [place] COMPARISON: No previous studies available for comparison. INDICATIONS : Post pacemaker lead replacement, evaluate for pneumothorax MEDICAL HISTORY : Cardiovascular disease. Cardiovascular disease. SURGICAL HISTORY : Pacemaker. CABG. bilateral shoulders ENCOUNTER: Initial ACUITY: 1 day PAIN SCORE: Non-responsive. LOCATION: Bilateral chest FINDINGS: Portable AP expiratory view of the chest demonstrates a normal-sized cardiac silhouette with calcific ation of the aorta. Patient is post valve replacement and median sternotomy. Left chest wall cardiac pacing device is present with lead tips overlying the right heart on this frontal projection. No pneu mothorax is visualized. There is bibasilar airspace opacity with slight blunting of the costophrenic sulci bilaterally. There has been prior bilateral shoulder arthroplasty. No acute osseous abnormality is seen. CONCLUSION: 1. No pneumothorax is visualized following pacemaker placement. 2. There is airspace consolidation in the lower lung zones bilaterally. Slight blunting of the costop hrenic sulci bilaterally suggests small pleural effusions. Chaim Temple MD on November 21, 2017 at 10:49 Board Certified Radiologist. This report was verified electronically.
[2017-11-21] MEDS ORDERED: PROPOFOL 200 MG/20 ML AMP IV ONE (12:00)
--- NOTE | 2017-11-21 15:23 | EKG ---
Date Performed: 11/21/2017 Time Performed: 06:50:40 PTAGE: 81 years EKG: Cannot rule out atrial fibrillation Ventricular pacing. Pacemaker rhythm - no further lyudmila sis Abnormal ECG Compared to prior electrocardiogram, POSSIBLE atrial fibrillation is now present . PREVIOUS TRACING : 01/16/2017 07.03 DOCTOR: Ravi Redman Interpretating Date/Time 11/21/2017 15:22:07
--- NOTE | 2017-11-22 06:52 | HHI.PR ---
Addendum to Inpatient Note Addendum Reason: Additional Documentation Additional Information Patient discharged yest PM. This is is to document he was in good condition. Pacer check prior to discharge nl function. CXR no pneumothorax. He has F/U in my office. Jarrett Berkowitz MD November 22, 2017 06:52
== END 2017-11-21 16:47 | disposition home or self-care (01) ==
LOC: HDOC 05:37 → HDIC 05:40 → HDOC 16:47
PROVIDERS: ATTEND Internal Medicine Cardiovascular Disease
DX: T82.110A Breakdown (mechanical) of cardiac electrode, initial encounter (principal); I35.0 Nonrheumatic aortic (valve) stenosis; I25.10 Atherosclerotic heart disease of native coronary artery without angina pectoris; R07.9 Chest pain, unspecified; I10 Essential (primary) hypertension; E78.5 Hyperlipidemia, unspecified; K21.9 Gastro-esophageal reflux disease without esophagitis; C67.9 Malignant neoplasm of bladder, unspecified; M81.0 Age-related osteoporosis without current pathological fracture; Z95.3 Presence of xenogenic heart valve; Z95.1 Presence of aortocoronary bypass graft; Z01.818 Encounter for other preprocedural examination
CPT/HCPCS: 00400; 33217; 33234; 71045; 80048; 85025; 85610; 85730; 93005; C1898; J2250; J3010; J3370; Q9967